=== PATIENT | male | born 1995 | race Caucasian/White ===

== ENCOUNTER 2018-01-02 07:53 | Emergency (ER) | payer OTHER ==
--- NOTE | 2018-01-02 08:00 | EDPHY ---
H & P Stated Complaint: Right-sided chest pain Time Seen by Provider: 01/02/18 08:00 HPI/ROS: CHIEF COMPLAINT: Right-sided chest pain HISTORY OF PRESENT ILLNESS: The patient presents to the ED with right-sided chest pain and dyspnea which has been present since . The patient denies any history of fall, trauma, fever or cough. The patient denies prior history of pneumothorax. The patient denies any significant medical problems. He reports mild dyspnea. The patient does have a history of some immobility while taking long bus rides. There is no family history of blood clots. The patient denies any additional acute complaints. The patient complains of a sharp pain in the anterior aspect of his chest and right posterior upper chest. REVIEW OF SYSTEMS: A comprehensive 10 point review of systems is otherwise negative aside from elements mentioned in the history of present illness. Source: Patient - Personal History Current Tetanus Diphtheria and Acellular Pertussis (TDAP): Yes - Medical/Surgical History Other PMH: healthy - Family History Significant Family History: No pertinent family hx - Physical Exam Exam: General Appearance: Alert, no distress Eyes: Pupils equal and round no pallor or injection ENT, Mouth: Mucous membranes moist Respiratory: Lungs clear to auscultation, decreased breath sounds right lung field, no subcutaneous emphysema Cardiovascular: Regular rate and rhythm Gastrointestinal: Abdomen is soft and nontender, no masses, bowel sounds normal Neurological: 5/5 strength all 4 extremities Skin: Warm and dry, no rashes Musculoskeletal: Neck is supple nontender Extremities: symmetrical, full range of motion Constitutional: Initial Vital Signs Temperature (C) 36.5 C 01/02/18 07:54 Heart Rate 53 L 01/02/18 07:54 Respiratory Rate 16 01/02/18 07:54 Blood Pressure 127/78 H 01/02/18 07:54 O2 Sat (%) 98 01/02/18 07:54 O2 Delivery Mode Room Air Allergies/Adverse Reactions: No Known Allergies Allergy (Unverified 01/02/18 07:58) Home Medications: Medication Instructions Recorded NK [No Known Home Meds] 01/02/18 Medical Decision Making - Diagnostics EKG Interpretation: EKG: Complete interpretation has been separately recorded in the [facility] archive. Summary impression: Sinus rhythm, rate 53 Imaging Results: Imaging Impressions Chest X-Ray 01/02/18 08:13 Impression: Normal. ED Course/Re-evaluation: The patient presents the ED for evaluation of several days of right-sided chest pain which is worsened with inspiration. The patient was noted to be hemodynamically stable upon arrival. Chest x-ray demonstrates no evidence of pneumothorax or pneumonia. Additional workup included an EKG which demonstrates no evidence of pericarditis. The patient has a negative D-dimer which I feel adequately excludes pulmonary embolism. Patient's troponin is normal. The patient received 30 mg of IV Toradol in the emergency department. I favor a cause of pain such as costochondritis verses pleurisy. I do feel it is reasonable to have the patient take NSAIDs for the next 7 days. The patient has no risk factors for coronary artery disease. He is well-appearing and healthy. The patient will be discharged home with customary aftercare instructions and return precautions. I re-evaluated the patient at 10:00 a.m.. He is comfortable being discharged home. Differential Diagnosis: Differential diagnosis considered in no particular order includes pleurisy, costochondritis, pulmonary embolism, pneumothorax, pericarditis, myocarditis - Data Points Laboratory Results: Laboratory Results 01/02/18 09:01 01/02/18 09:01 01/02/18 01/02/18 01/02/18 09:05 09:01 09:01 WBC RBC Hgb Hct MCV MCH MCHC RDW Plt Count MPV Neut % (Auto) Lymph % (Auto) [place] % (Auto) Eos % (Auto) Baso % (Auto) Nucleat RBC Rel Count Absolute Neuts (auto) Absolute Lymphs (auto) Absolute Monos (auto) Absolute Eos (auto) Absolute Basos (auto) Absolute Nucleated RBC Immature Gran % Immature Gran # D-Dimer < 0.27 ug/mLFEU ug/mLFEU (0.00-0.50) Sodium 141 mEq/L mEq/L (135-145) Potassium 4.4 mEq/L mEq/L (3.3-5.0) Chloride 106 mEq/L mEq/L (97-110) Carbon Dioxide 20 mEq/l L mEq/l (22-31) Anion Gap 15 mEq/L mEq/L (8-16) BUN 14 mg/dL mg/dL (7-23) Creatinine 0.7 mg/dL mg/dL (0.7-1.3) Estimated GFR > 60 Glucose 92 mg/dL mg/dL (70-100) Calcium 9.5 mg/dL mg/dL (8.5-10.4) POC Troponin I 0.00 ng/mL ng/mL (0.00-0.08) 01/02/18 09:01 WBC 10.15 10^3/uL H 10^3/uL (3.80-9.50) RBC 5.43 10^6/uL 10^6/uL (4.40-6.38) Hgb 16.2 g/dL g/dL (13.7-17.5) Hct 47.7 % % (40.0-51.0) MCV 87.8 fL fL (81.5-99.8) MCH 29.8 pg pg (27.9-34.1) MCHC 34.0 g/dL g/dL (32.4-36.7) RDW 13.2 % % (11.5-15.2) Plt Count 273 10^3/uL 10^3/uL (150-400) MPV 9.9 fL fL (8.7-11.7) Neut % (Auto) 73.8 % % (39.3-74.2) Lymph % (Auto) 18.1 % % (15.0-45.0) [place] % (Auto) 7.0 % % (4.5-13.0) Eos % (Auto) 0.6 % % (0.6-7.6) Baso % (Auto) 0.3 % % (0.3-1.7) Nucleat RBC Rel Count 0.0 % % (0.0-0.2) Absolute Neuts (auto) 7.49 10^3/uL H 10^3/uL (1.70-6.50) Absolute Lymphs (auto) 1.84 10^3/uL 10^3/uL (1.00-3.00) Absolute Monos (auto) 0.71 10^3/uL 10^3/uL (0.30-0.80) Absolute Eos (auto) 0.06 10^3/uL 10^3/uL (0.03-0.40) Absolute Basos (auto) 0.03 10^3/uL 10^3/uL (0.02-0.10) Absolute Nucleated RBC 0.00 10^3/uL 10^3/uL (0-0.01) Immature Gran % 0.2 % % (0.0-1.1) Immature Gran # 0.02 10^3/uL 10^3/uL (0.00-0.10) D-Dimer Sodium Potassium Chloride Carbon Dioxide Anion Gap BUN Creatinine Estimated GFR Glucose Calcium POC Troponin I Medications Given: Discontinued Medications Ketorolac Tromethamine (Toradol) 30 mg IVP EDNOW ONE Stop: 01/02/18 09:31 Last Admin: 01/02/18 09:35 Dose: 30 mg Point of Care Test Results: Chemistry 01/02/18 09:05 POC Troponin I 0.00 ng/mL ng/mL (0.00-0.08) Departure - Departure Disposition: Home, Routine, Self-Care Clinical Impression: Pleurisy Condition: Good Instructions: Pleurisy (ED) Additional Instructions: 1. Take Ibuprofen or Motrin 600 mg by mouth three times a day. 2. The workup in the emergency department demonstrates no evidence of a collapsed lung, blood clot, pneumonia, cardiac condition or other worrisome diagnosis. 3. Please return to the ED for markedly worsening symptoms or other concerns. Referrals: DAHLIA GALVAN MD [Other] - As per Instructions
--- NOTE | 2018-01-02 09:01 | CPEKG ---
Heart Rate: 53 RR Interval: 1132 P-R Interval: 180 QRSD Interval: 110 QT Interval: 448 QTC Interval: 421 P [place]: 48 QRS [place]: 54 T Wave [place]: 34 EKG Severity - ABNORMAL ECG - EKG Impression: SINUS RHYTHM Electronically Signed By: Ankit Landry 02-Jan-2018 09:03:19
[2018-01-02 09:09] LABS: PLATELET COUNT 273 10^3/uL (150-400)
[2018-01-02] MEDS ORDERED: KETOROLAC 30 MG/1 ML SDV IVP ONE (09:30)
[2018-01-02 10:05] VITALS: BP 128/76
== END 2018-01-02 10:06 | disposition home or self-care (01) ==
DX: R09.1 Pleurisy (principal)
CPT/HCPCS: 84484-PO; 96374; J1885